=== PATIENT | male | born 1970 | race Hispanic/Latino ===

== ENCOUNTER 2024-01-20 14:17 | Emergency (ER) | payer OTHER, SELFPAY ==
[2024-01-20 15:22] LABS: Hematocrit 40.4 % (42.0-52.0); Hemoglobin 13.8 g/dL (14.0-18.0); Mean Corpuscular HGB CONC 34.2 g/dL (32.0-36.0); Mean Corpuscular Hemoglobin 29.3 pg (27.0-31.0); Mean Corpuscular Volume 85.8 fL (78.0-98.0); Mean Platelet Volume 10.1 fL (7.4-10.4); Platelet Count 195 10x3/uL (130-400); RBC Distribution Width 13.2 % (11.5-14.5); Red Blood Cell (RBC) Count 4.71 mill/uL (4.70-6.10)
[2024-01-20 15:29] LABS: CRP,High Sensitivity (Inhouse) 0.31 mg/dL (< or = 0.5)
[2024-01-20 15:30] LABS: ALT (SGPT) 12 U/L (8-55); AST (SGOT) 21 U/L (5-34); Albumin 4.2 g/dL (3.5-5.0); Alkaline Phosphatase 62 U/L (40-110); Anion Gap 10 mmol/L (10-20); BUN (Urea Nitrogen) 9 mg/dL (8.4-25.7); Bilirubin, Total 0.4 mg/dL (0.2-1.2); Calc. Creatinine Clearance 0 mL/min (70-130); Calcium 9.5 mg/dL (7.8-10.44); Carbon Dioxide 30 mmol/L (22-29); Chloride 92 mmol/L (98-107); Estimated GFR 105; Globulin 3.4 g/dL (2.4-3.5); Glucose 105 mg/dL (70-105); Potassium 3.2 mmol/L (3.5-5.1); Protein, Total 7.6 g/dL (6.0-8.3); Sodium 129 mmol/L (136-145)
[2024-01-20 16:06] LABS: Band 5 % (5-11); Eosinophils 2 % (0-10); Lymphocytes 22 % (21-51); Monocytes 6 % (0-10); Neutrophil 57 % (42-75); Platelet Adequacy Comment Platelets Normal; RBC Morphology Within Normal Limits; Reactive Lymphocytes 7 % (0-10)
== END 2024-01-20 18:04 | disposition home or self-care (01) ==
LOC: ERS 14:17
DX: B02.9 Zoster without complications (principal); F17.220 Nicotine dependence, chewing tobacco, uncomplicated
CPT/HCPCS: 36415; 80053; 85025; 86141; 99283

== ENCOUNTER 2024-01-23 05:57 | Emergency (ER) | payer SELFPAY | END 2024-01-23 06:46 | disposition home or self-care (01) | LOC: ERS 05:57 | DX: B02.9 Zoster without complications (principal); I10 Essential (primary) hypertension; F17.220 Nicotine dependence, chewing tobacco, uncomplicated | CPT/HCPCS: 99282 ==